=== PATIENT | female | born 1960 | race Caucasian/White ===

== ENCOUNTER 2018-01-07 18:17 | Emergency (ER) | payer OTHER ==
[~2018-01-07] VITALS: Ht 160 cm; Wt 97.5 kg
[~2018-01-07 18:17] MED LIST: ASPI81CH PO; Amaryl2 MG PO; Bactrim Ds Tab1 EACH PO; CYCL10 PO; FAMO20 PO; GLIM4 PO; GLIP5ER PO; HYDACE5325 PO; HYDPAM50 PO; IBUP800 PO; LISI20 PO; MAGIC MOUTHWASH; METF500 PO; NAPR500 PO; PANT40 PO; PARO20 PO; PIOG15 PO; PRAZ1 PO; Prednisone10 MG PO; TIZA4 PO; VENL150ER PO; Zanaflex4 MG PO
[2018-01-07] MEDS ORDERED: Norco 5-325 Ta1 EACH PO (19:45)
== END 2018-01-07 20:01 | disposition home or self-care (01) ==
LOC: ER 18:17
DX: M17.11 Unilateral primary osteoarthritis, right knee (principal); E11.9 Type 2 diabetes mellitus without complications; I10 Essential (primary) hypertension; F32.9 Major depressive disorder, single episode, unspecified; Z79.899 Other long term (current) drug therapy; Z79.84 Long term (current) use of oral hypoglycemic drugs; Z79.82 Long term (current) use of aspirin
CPT/HCPCS: 73564; 99283

== ENCOUNTER 2018-09-12 05:52 | Observation (INO) | payer OTHER ==
[~2018-09-12] VITALS: Ht 160 cm; Wt 106.4 kg
[~2018-09-12 05:52] MED LIST changes: +Norco 5-325 Ta1 EACH PO
[2018-09-12 06:42] LABS: BASOPHILS ABSOLUTE AUTO 0.07 K/mm3 (0.00-0.23); BASOPHILS PERCENT AUTO 1 % (0-2); EOSINOPHILS ABSOLUTE AUTO 0.59 K/mm3 (0.00-0.68); EOSINOPHILS PERCENT AUTO 8 % (0-6); Hematocrit 40.9 % (33.0-51.0); Hemoglobin 13.2 g/dL (11.5-16.0); IMMATURE GRAN ABSOLUTE AUTO 0.03 K/mm3 (0.00-0.10); IMMATURE GRAN PERCENT AUTO 0 % (0-1); LYMPHOCYTES ABSOLUTE AUTO 1.89 K/mm3 (0.84-5.20); LYMPHOCYTES PERCENT AUTO 25 % (21-46); MONOCYTES ABSOLUTE AUTO 0.54 K/mm3 (0.16-1.47); MONOCYTES PERCENT AUTO 7 % (4-13); Mean Corpuscular HGB 29.5 pg (26.0-34.0); Mean Corpuscular HGB Conc 32.3 g/dL (31.5-36.5); Mean Corpuscular Volume 91 fL (80-100); Mean Platelet Volume 9.3 fL (9.1-12.4); NEUTROPHILS ABSOLUTE AUTO 4.44 K/mm3 (1.96-9.15); NEUTROPHILS PERCENT AUTO 59 % (41-73); Platelet Count 223 K/mm3 (150-400); RDW Coefficient Variation 12.8 % (11.7-14.2); RDW Standard Deviation 42.1 fL (35.1-46.3); Red Blood Cell Count 4.48 M/mm3 (3.80-5.20); White Blood Cell Count 7.56 K/mm3 (4.00-11.30)
[2018-09-12 07:01] LABS: Alanine Aminotransfer (ALT/SGP 46 U/L (12-78); Albumin, Blood 3.5 g/dL (3.4-5.0); Albumin/Globulin Ratio 0.9 (0.8-1.8); Alk Phos 124 U/L (50-136); Anion Gap 6 mmol/L (6-16); Aspartate Aminotrans (AST/SGOT 25 U/L (12-37); Bilirubin, Total 0.4 mg/dL (0.1-1.0); Blood Urea Nitrogen 9 mg/dL (8-24); Bun/Creatinine Ratio 13.3 (12.0-20.0); CO2, Blood 27 mmol/L (21-32); Calcium, Blood 8.6 mg/dL (8.5-10.1); Chloride, Blood 106 mmol/L (98-108); Creatinine, Blood 0.68 mg/dL (0.40-1.00); Globulin, Blood 3.7 g/dL (2.2-4.0); Glomerular Filtration Rate >60 (60-); Glucose, Blood 165 mg/dL (70-99); Potassium, Blood 4.4 mmol/L (3.5-5.5); Sodium, Blood 139 mmol/L (136-145); Total Protein, Blood 7.2 g/dL (6.4-8.2); Troponin I <0.015 ng/mL (0.000-0.040)
[2018-09-12] MEDS ORDERED: SUCR1 (09:42)
[2018-09-12] MEDS ORDERED: SUCR1 PO (09:42)
--- NOTE | 2018-09-12 15:43 | NUR ---
PT PERMISSION PT GAVE PERMISSION TO GEOSPATIAL PROGRAM MANAGEMENT OFFICER, SERENA MARINELLI TO BE APART OF HER CARE ON 09/13/2018.
--- NOTE | 2018-09-12 16:47 | NUR ---
PT IS A NEW ADMIT TODAY FROM THE ER AROUND 0900, THE PT IS A/OX3, PLEASANT AND COOPERATIVE, THE PT IS UP IND IN HER ROOM, THE PT APPEARS TO BE BREATHING EASILY ON RA, WHEN THE PT CAME UP FROM THE ER SHE STATED THAT HER PAIN WAS 1/10, THE PT WQAS ORIENTED TO THE ROOM LAYOUT AND CALL SYSTEM, AT AROUND 1300 THE PT STATED THAT THE PAIN IN HER RIGHT ARM HAD INCREASED TO 6/10, A CALL WAS MADE TO DR. LENNON, NITRO STAT WAS GIVEN ORDERED WITHOUT RELIEF OF THE PAIN THE PT WAS THEN GIVEN TYLENOL, SHE FEEL ASLEEP AND AWOKE WITH NO PAIN IN HER ARM, A STRESS TEST WAS ORDERED FOR THE PT STARTING IN AM TOMMOROW, CALL LIGHT IN REAC, BED IN THE LOW POSITION FOR SAFETY
--- NOTE | 2018-09-12 20:48 | NUR ---
PT REFUSED EVENING CBG. ATTENDING NURSE AWARE.
--- NOTE | 2018-09-13 04:17 | NUR ---
SHIFT SUMMARY PT IS A&O, PLEASANT, AND INDEPENDANT IN RM TO BTHRM. ADMITTED FOR CP, BUT HAS CONTINUED TO DENY ANY PAIN; "NO PAIN IN MY ARM OR JAW". PT HAD RECEIVED NITRO AND TYLENOL PRIOR TO NOC SHIFT. SR ON TELE. PRESENTLY NPO FOR STRESS TEST THIS AM. REFUSED ANY FURTHER CBG'S; PT REPORTED THAT SHE TAKES ORAL DM MEDICATION AT HOME AND IS STABLE ON THE REGIMEN THAT SHE HAS BEEN ON. CALL LT IN REACH. ABLE TO MAKE NEEDS KNOWN.
--- NOTE | 2018-09-13 16:25 | NUR ---
PT A/OX3, PLEASANT AND COOPERATIVE, UP IND IN HIS ROOM, PT HAD THE STRESS TEST PERFORMED TODAY, TOLERATED WELL, THE PT IS ENCOURAGED TO STAY NOW FOR THE RESTING PORTION OF THE TEST AT 1430 TOMMOROW, THE PT APPEARS TO BE BREATHING EASILY AT THIS TIME ON RA, THE PT CURRENTLY DENIES ANY PAIN AT THIS TIME, CALL IGHT IN REACH VISITOR AT THE BEDSIDE AT THIS TIME
--- NOTE | 2018-09-14 03:40 | NUR ---
SHIFT SUMMARY NO ACUTE CHANGES TO PRESENT THIS SHIFT. PT IS A&O, PLEASANT AND CO-OP. INDEPENDANT IN RM. PT TO HAVE REMAINING PART OF STRESS TEST TODAY. NO C/O CP SINCE COMING TO . SR ON TELE, PER MX TECH. MEDICATED FOR C/O PAIN IN R KNEE, TYLENOL GIVEN AND PT REPORTED IT EFFECTIVE. PT TO HAVE KNEE REPLACEMENT IN NEAR FUTURE. DENIED FURTHER NEEDS. CALL LT IN REACH.
--- NOTE | 2018-09-14 18:33 | NUR ---
SHIFT SUMMARY: COMPLETED SECOND PART OF STRESS TEST WITH ABNORMAL RESULTS. PT INITALLY WANTED TO LEAVE. THIS RN INFORMED HER THAT DR. WONG WOULD NOT BE DISCHARGING HER AND IF SHE WERE TO LEAVE, SHE WOULD BE CONSIDERED AMA. PT AGREEABLE TO STAY AND SEE A CANAL TENDER TOMORROW, BUT REQUESTED A SLEEP AIDE. NOTIFIED DR. WONG OF THIS AND HE ORDERED AMBIEN. NO EPISODES OF CHEST PAIN TODAY. HER ONLY COMPLAINT THIS MORNING WAS THAT SHE WAS CONSTIPATED, BUT SHE WAS ABLE TO HAVE A BM THIS AFTERNOON. NO OTHER CHANGES. CALL LIGHT IN REACH.
--- NOTE | 2018-09-14 19:10 | NUR ---
RECEIVED BEDSIDE REPORT FROM EFE ANGEL. PT A/O. IN BED WATCHING TV. RESP E/U ON RA. PLEASANT AND COOPERATIVE. TELE IN PLACE. NO NEEDS AT THIS TIME. PT IS INDEP IN . WILL MONITOR AND PROVIDE CARE T/O SHIFT. CALL LT IN REACH.
--- NOTE | 2018-09-15 01:19 | NUR ---
PT C/O 10 RIGHT ARM PAIN RADIATING UP THE SIDE OF HER RIGHT NECK. VITALS BP 126/71, HR 71, 95% RA, RESP 14, T 97.5. NOTIFIED NEW ORDER RECEIVED FOR IV FENTANYL AND A STAT TROPONIN DRAW. NO CHANGE IN RHYTHM PER TELE, PT IS NSR AT 69. WILL CONTINUE TO MONITOR. CALL LT IN REACH.
--- NOTE | 2018-09-15 01:33 | NUR ---
MEDICATED PT FOR 03/13 RIGHT UPPER ARM RADIATING TO RIGHT SIDE OF NECK WITH 25 MCG OF IV FENTANYL. LAB INTO DRAW A STAT TROPONIN. WILL MONITOR. CALL LT IN REACH.
--- NOTE | 2018-09-15 01:44 | NUR ---
PT APPEARS DROWSY, STATES THE PAIN IN SUZY AND NECK WAS EASING UP. WILL MONITOR. CALL LT IN REACH.
--- NOTE | 2018-09-15 03:29 | NUR ---
SHIFT SUMMARY: PT C/O 03/13 RIGHT UPPER ARM PAIN THAT RADIATED TO RIGHT SIDE OF NECK. VITALS STABLE BP 126/71, HR 71, 95% RA, R 14, T 97.5. PER TELE NO RATE OR RHYTHM CHANGE, NSR AT 69. DR NOTIFIED. NEW ORDER RECEIVED FOR PAIN AND STAT TROPONIN. TROPONIN NEGATIVE. PAIN MED WORKED AND EASED PT'S PAIN. WILL CONTINUE TO MONITOR AND PROVIDE CARE UNTIL SHIFT REPORT.
[2018-09-15] MEDS ORDERED: ATOR80 PO (15:18)
[2018-09-15] MEDS ORDERED: Lopressor 25 mg25 MG PO (15:20)
[2018-09-15] MEDS ORDERED: NITR.4SL SL (15:21)
--- NOTE | 2018-09-15 17:40 | NUR ---
PATIENT DISCHARGED TO HOME. INSTRUCTED TO FOLLOW UP WITH CARDIOLOGY, NUMBER GIVEN. INSTRUCTED TO CALL OFFICE IF SHE DOESN'T HEAR ANYTHING BY MONDAY. MEDICATIONS FAXED TO [facility], [facility] INSTRUCTED TO START ALL NEW MEDICATIONS TONIGHT. IV ACCESS REMOVED. ESCORTED OUT WITH EFE
== END 2018-09-15 16:33 | disposition home or self-care (01) ==
LOC: ER 05:52 → MEDS 05:53
PROVIDERS: Emergency Medicine; ADMIT Hospitalist
DX: R07.89 Other chest pain (principal); E11.9 Type 2 diabetes mellitus without complications; R94.39 Abnormal result of other cardiovascular function study; I10 Essential (primary) hypertension; E66.01 Morbid (severe) obesity due to excess calories; M19.90 Unspecified osteoarthritis, unspecified site; F32.9 Major depressive disorder, single episode, unspecified; Z79.84 Long term (current) use of oral hypoglycemic drugs; Z79.82 Long term (current) use of aspirin; Z79.899 Other long term (current) drug therapy
CPT/HCPCS: 36415; 71046; 78452; 80053; 82947; 84484; 85025; 93005; 93010; 93017; 96372; 96374; 96375; 99285-25; A9500; G0378; J0706; J1650; J2270; J2405; J2785; J3010; J7040

== ENCOUNTER 2019-04-02 13:15 | Emergency (ER) | payer OTHER ==
[~2019-04-02] VITALS: Ht 160 cm; Wt 104.3 kg
[~2019-04-02 13:15] MED LIST changes: +ATOR80 PO; +Lopressor 25 mg25 MG PO; +NITR.4SL SL; +SUCR1; +SUCR1 PO
[2019-04-02] MEDS ORDERED: Norco 5-325 Ta1 EACH PO (14:52)
== END 2019-04-02 15:02 | disposition home or self-care (01) ==
LOC: ER 13:15
DX: M25.562 Pain in left knee (principal); Z79.899 Other long term (current) drug therapy; Z79.82 Long term (current) use of aspirin; Z79.84 Long term (current) use of oral hypoglycemic drugs; I10 Essential (primary) hypertension; E11.9 Type 2 diabetes mellitus without complications; F32.9 Major depressive disorder, single episode, unspecified
CPT/HCPCS: 29505; 73562-LT; 99283-25

== ENCOUNTER 2019-07-25 07:37 | Day surgery (SDC) | payer OTHER ==
[~2019-07-25] VITALS: Ht 160 cm; Wt 101.3 kg
[2019-07-25] MEDS ORDERED: AMLO10 PO (08:19)
[2019-07-25] MEDS ORDERED: GLYB2.5 PO (08:19)
--- NOTE | 2019-07-25 08:37 | NUR ---
07/25/19 0837 Kylee Baig DRAWN AND DELIVERD TO OR
== END 2019-07-25 11:50 | disposition home or self-care (01) ==
LOC: ORSCSDS 07:37
PROVIDERS: Orthopaedic Surgery
PROC: 0SBD4ZZ Excision of Left Knee Joint, Percutaneous Endoscopic Approach (ICD-10-PCS; principal; 2019-07-25 09:00)
DX: M17.12 Unilateral primary osteoarthritis, left knee (principal); M25.861 Other specified joint disorders, right knee; S83.282A Other tear of lateral meniscus, current injury, left knee, initial encounter; S83.242A Other tear of medial meniscus, current injury, left knee, initial encounter; M94.262 Chondromalacia, left knee; M65.9 Synovitis and tenosynovitis, unspecified; I10 Essential (primary) hypertension; E11.9 Type 2 diabetes mellitus without complications; K21.9 Gastro-esophageal reflux disease without esophagitis; E66.01 Morbid (severe) obesity due to excess calories; Z68.39 Body mass index [BMI] 39.0-39.9, adult; Z79.899 Other long term (current) drug therapy
CPT/HCPCS: 82947; A9270-GY; J0171; J0690; J1100; J1885; J2250; J2405; J2704; J2795; J3010; J7120

== ENCOUNTER 2021-06-30 14:18 | Emergency (ER) | payer OTHER ==
[~2021-06-30] VITALS: Ht 160 cm; Wt 93.0 kg
[~2021-06-30 14:18] MED LIST changes: +AMLO10 PO; +GLYB2.5 PO
[2021-06-30] MEDS ORDERED: AZIT250 PO (16:18)
== END 2021-06-30 16:53 | disposition home or self-care (01) ==
LOC: ER 14:18
DX: R05.9 Cough, unspecified (principal); Z20.822 Contact with and (suspected) exposure to COVID-19; I10 Essential (primary) hypertension; E11.9 Type 2 diabetes mellitus without complications; Z79.899 Other long term (current) drug therapy; Z79.84 Long term (current) use of oral hypoglycemic drugs
CPT/HCPCS: 93005; 93010; 99284-25

== ENCOUNTER 2023-11-29 14:06 | Emergency (ER) | payer OTHER ==
[~2023-11-29] VITALS: Ht 162.6 cm; Wt 86.2 kg
[~2023-11-29 14:06] MED LIST changes: +AZIT250 PO; +VENLAFAXINE H37.5 M1 PO
[2023-11-29 14:11] VITALS: BP 180/103
[2023-12-13] MEDS ORDERED: PIOGLITAZONE HC15 MG PO (18:38)
[2023-12-13] MEDS ORDERED: GLIMEPIRIDE4 MG PO (18:38)
[2023-12-15] MEDS ORDERED: OXAYDO5 M1 PO (14:51)
== END 2023-11-29 16:57 | disposition left against medical advice (07) ==
LOC: ER 14:06
DX: M54.9 Dorsalgia, unspecified (principal); G03.8 Meningitis due to other specified causes; Z53.21 Procedure and treatment not carried out due to patient leaving prior to being seen by health care provider
CPT/HCPCS: 99281